=== PATIENT | female | born 1960 | race Caucasian/White ===

== ENCOUNTER 2017-03-22 20:32 | Emergency (ER) | payer MEDICARE, MEDICAID ==
[2017-03-22] MEDS ORDERED: Atropine/Diphenoxylate 0.025-2.5 MG Tab PO ONE (20:46)
--- NOTE | 2017-03-22 20:51 | EDM.PDOC ---
ED HPI GENERAL MEDICAL PROBLEM - General Chief Complaint: Gastrointestinal Problem Stated Complaint: CDIFF? [id number] Time Seen by Provider: 03/22/17 20:47 Source of Information: Reports: Patient History Limitations: Reports: No Limitations - History of Present Illness INITIAL COMMENTS - FREE TEXT/NARRATIVE: been having diarrhoea since taking augmentin few months ago. being Tx with Rx & probiotic but past few days gotten worse, unable to wait for clinic tomorrow. Lower Abdominal Pain Score (Numeric/FACES): 8 - Related Data Allergies Allergy/AdvReac Type Severity Reaction Status Date / Time No Known Allergies Allergy Verified 03/22/17 21:05 Home Meds: Home Meds Albuterol [Proventil HFA] 2 puff INH Q4HR PRN 12/03/13 [History] tiZANidine [Zanaflex] 4 mg PO BID 12/03/13 [History] Albuterol [Proventil Neb Soln] 1.25 mg NEB Q6HRRT PRN 10/13/14 [History] Aspirin [[place] Aspirin] 81 mg PO DAILY 10/13/14 [History] Fluticasone/Salmeterol [Advair 500-50 Diskus] 1 puff INH DAILY 10/13/14 [History ] Hydrochlorothiazide/Losartan [Hyzaar 50-12.5 MG] 1 tab PO DAILY 10/13/14 [ History] diphenhydrAMINE [Benadryl] 50 mg PO BID PRN 10/13/14 [History] Cholestyramine/Aspartame [Prevalite] 1 pkt PO ASDIRECTED 03/22/17 [History] ClonazePAM [KlonoPIN] 1 tab PO BID PRN 03/22/17 [History] Losartan/Hydrochlorothiazide [Losartan-HCTZ 50-12.5 MG] 1 tab PO DAILY 03/22/17 [History] Mirtazapine [Mirtazapine] 1 tab PO DAILY 03/22/17 [History] Topiramate [Topiramate] 1 tab PO DAILY 03/22/17 [History] Social & Family History - Tobacco Use Years of Tobacco use: 33 Second Hand Smoke Exposure: Yes - Alcohol Use Days Per Week of Alcohol Use: 0 - Recreational Drug Use Recreational Drug Use: No - Living Situation & Occupation Living situation: Reports: with Family Occupation: Unemployed ED ROS GENERAL - Review of Systems Review Of Systems: ROS reveals no pertinent complaints other than HPI. ED EXAM, GI/ABD - Physical Exam Exam: See Below Exam Limited By: No Limitations General Appearance: Alert, WD/WN, Mild Distress, Other (discomfort) Ears: Hearing Grossly Normal Throat/Mouth: Normal Voice, No Airway Compromise Head: Atraumatic Neck: Non-Tender, Full Range of Motion Respiratory/Chest: No Respiratory Distress Cardiovascular: Regular Rate, Rhythm GI/Abdominal Exam: Soft, Abnormal Bowel Sounds, Other (BS hyper). No: Distended , Guarding, Rigid, Rebound, Tender Neurological: Alert, Oriented, Normal Cognition, Normal Gait, No Motor/Sensory Deficits Psychiatric: Flat Affect, Other (upset) Skin Exam: Warm, Dry, Normal Color Lymphatic: No Adenopathy Course - Vital Signs Last Recorded V/S: Last Vital Signs Temp 36.8 C 03/22/17 20:40 Pulse 116 H 03/22/17 20:40 Resp 16 03/22/17 20:40 BP 123/68 03/22/17 20:40 Pulse Ox 96 03/22/17 20:40 - Orders/Labs/Meds Orders: Active Orders 24 hr Category Date Time Status C DIFFICILE TOXIN BY PCR [MREF] Stat Lab 03/22/17 21:37 Ordered CULTURE STOOL [RM] Stat Lab 03/22/17 21:19 Ordered CULTURE STOOL [RM] Stat Lab 03/22/17 21:37 Ordered E COLI STOOL CULT [MREF] Stat Lab 03/22/17 21:19 Ordered H PYLORI STOOL ANTIGEN [MREF] Stat Lab 03/22/17 21:19 Ordered Labs: Laboratory Tests 03/22/17 03/22/17 Range/Units 20:53 20:53 WBC 13.8 H (5.0-10.0) 10^3/uL RBC 4.45 (4.2-5.4) 10^6/uL Hgb 13.6 (12.0-16.0) g/dL Hct 39.7 (37.0-47.0) % MCV 89.2 D (80-100) fL MCH 30.6 (27.0-34.0) pg MCHC 34.3 (33.0-35.0) g/dL Plt Count 435 (150-450) 10^3/uL Neut % (Auto) 66.9 (42.2-75.2) % Lymph % (Auto) 18.8 L (20.5-50.1) % [place] % (Auto) 9.6 H (2-8) % Eos % (Auto) 4.3 H (1.0-3.0) % Baso % (Auto) 0.4 (0.0-1.0) % Sodium 137 (135-145) mmol/L Potassium 3.2 L (3.6-5.0) mmol/L Chloride 103 (101-111) mmol/L Carbon Dioxide 23.0 (21.0-31.0) mmol/L Anion Gap 14.2 BUN 9 (7-18) mg/dL Creatinine 0.9 (0.6-1.3) mg/dL Est Cr Clr Drug Dosing 62.80 mL/min Estimated GFR (MDRD) > 60 BUN/Creatinine Ratio 10.00 Glucose 137 H (74-105) mg/dL Calcium 9.0 (8.4-10.2) mg/dl Total Bilirubin 0.5 (0.2-1.0) mg/dL AST 25 (10-42) IU/L ALT 34 (10-60) IU/L Alkaline Phosphatase 58 (42-121) IU/L Total Protein 7.5 (6.7-8.2) g/dl Albumin 3.9 (3.2-5.5) g/dl Globulin 3.6 Albumin/Globulin Ratio 1.08 Meds: Medications Discontinued Medications Generic Name Dose Route Start Last Admin Trade Name Freq PRN Reason Stop Dose Admin Diphenoxylate HCl/Atropine 1 tab 03/22/17 20:46 03/22/17 21:19 Lomotil 0.025-2.5 Mg PO 03/22/17 20:47 1 tab ONETIME ONE Administration - Re-Assessments/Exams Free Text/Narrative Re-Assessment/Exam: 03/22/17 21:53 results discussed with pt who is feeling better s/p lomotil. probiotic issue was also discussed. Departure - Departure Time of Disposition: 21:54 Disposition: Home, Self-Care 01 Condition: Good Clinical Impression: Diarrhea, Abdominal pain - Discharge Information Instructions: Diarrhea, Adult, [id number] Forms: ED Department Discharge Additional Instructions: 1) try CHOBANI yoghurt. 2) continue present meds. 3) follow up with family doctor 4) recheck as needed rx given; bentyl 10mg bid prn cramps x 12 lomotil bid prn diarrhoea x 12 - My Orders Last 24 Hours: My Active Orders 03/22/17 21:19 CULTURE STOOL [RM] Stat E COLI STOOL CULT [MREF] Stat H PYLORI STOOL ANTIGEN [MREF] Stat 03/22/17 21:37 C DIFFICILE TOXIN BY PCR [MREF] Stat CULTURE STOOL [RM] Stat - Assessment/Plan Last 24 Hours: My Active Orders 03/22/17 21:19 CULTURE STOOL [RM] Stat E COLI STOOL CULT [MREF] Stat H PYLORI STOOL ANTIGEN [MREF] Stat 03/22/17 21:37 C DIFFICILE TOXIN BY PCR [MREF] Stat CULTURE STOOL [RM] Stat
[2017-03-22 21:18] LABS: ANION GAP 14.2; CHLORIDE,CL 103 mmol/L (101-111); SODIUM,NA 137 mmol/L (135-145)
[2017-03-22 21:54] VITALS: BP 140/69
[2017-03-22] MEDS ORDERED: metroNIDAZOLE 250 MG Tab PO ONE (21:56)
== END 2017-03-22 22:14 | disposition home or self-care (01) ==
LOC: DL.ED 20:32
DX: R19.7 Diarrhea, unspecified (principal); R10.30 Lower abdominal pain, unspecified; Z77.22 Contact with and (suspected) exposure to environmental tobacco smoke (acute) (chronic); Z79.899 Other long term (current) drug therapy; Z79.82 Long term (current) use of aspirin
CPT/HCPCS: 36415; 80053; 85025; 87045; 87046; 87493; 87899; 99283; A9270

== ENCOUNTER 2018-06-09 17:12 | Emergency (ER) | payer MEDICARE, MEDICAID ==
[2018-06-09 17:24] VITALS: BP 143/76
[2018-06-09 18:23] LABS: ANION GAP 15.9; CHLORIDE,CL 98 mmol/L (101-111); SODIUM,NA 137 mmol/L (135-145)
[2018-06-09] MEDS ORDERED: metroNIDAZOLE 250 MG Tab PO ONE (18:34)
[2018-06-09] MEDS ORDERED: Ciprofloxacin 500 MG Tab PO ONE (18:34)
[2018-06-09] MEDS ORDERED: Atropine/Diphenoxylate 0.025-2.5 MG Tab PO ONE (18:35)
--- NOTE | 2018-06-09 18:51 | EDM.PDOC ---
Scribed by Vickie Zafar 06/09/18 [id number] for Bereket Cutler MD ED HPI GENERAL MEDICAL PROBLEM - General Chief Complaint: Gastrointestinal Problem Stated Complaint: COLITUS Time Seen by Provider: 06/09/18 17:26 Source of Information: Reports: Patient, Old Records, RN, RN Notes Reviewed History Limitations: Reports: No Limitations - History of Present Illness INITIAL COMMENTS - FREE TEXT/NARRATIVE: Patient presents to ER with complaint of abdominal pain. She has a history of colitis which has flared up and gotten worse the last couple of days. She states it takes to long to get into the clinic. She rates her lower abdominal pain as a 4/10. She has taken nothing for the pain. She did have diarrhea today all day and took for this. Her colitis flares up after antibiotics and was on a ZPAK and prednisone for something behind her ear. She denies fever, chills, N/V , or melena. She has been evaluated by Dr. Strickland for chronic diarrhea and plans to have endoscopy in August. 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 Treatments (OTC Immodium AD (no relief)) Lower Abdomen Pain Score (Numeric/FACES): 4 - Related Data Allergies Allergy/AdvReac Type Severity Reaction Status Date / Time No Known Allergies Allergy Verified 06/09/18 17:24 Home Meds: Home Meds Albuterol [Proventil HFA] 2 puff INH Q4HR PRN 12/03/13 [History] tiZANidine [Zanaflex] 4 mg PO BID PRN 12/03/13 [History] Albuterol [Proventil Neb Soln] 1.25 mg NEB Q6HRRT PRN 10/13/14 [History] Aspirin [[place] Aspirin EC] 81 mg PO DAILY 10/13/14 [History] Fluticasone/Salmeterol [Advair 500-50 Diskus] 1 puff INH DAILY 10/13/14 [History ] diphenhydrAMINE [Benadryl] 50 mg PO BID PRN 10/13/14 [History] ClonazePAM [KlonoPIN] 1 tab PO BID PRN 03/22/17 [History] Losartan/Hydrochlorothiazide [Losartan-HCTZ 50-12.5 MG] 1 tab PO DAILY 03/22/17 [History] Mirtazapine 1 tab PO DAILY 03/22/17 [History] ARIPiprazole [Aripiprazole] 10 mg PO DAILY 06/09/18 [History] Eszopiclone 2 mg PO BEDTIME 06/09/18 [History] Gabapentin [Neurontin] 400 mg PO DAILY 06/09/18 [History] Gabapentin [Neurontin] 800 mg PO BID 06/09/18 [History] Propranolol [Inderal LA] 80 mg PO DAILY 06/09/18 [History] busPIRone [Buspar] 10 mg PO TID 06/09/18 [History] Past Medical History Cardiovascular 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: Hypertension Respiratory 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: Bronchitis, Recurrent Gastrointestinal 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: Chronic Diarrhea Psychiatric 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: Anxiety, Depression Endocrine/Metabolic 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: Hypothyroidism, Obesity/BMI 30+ Social & Family History - Family History Family Medical History: Noncontributory - Tobacco Use Smoking Status *Q: Former Smoker Tobacco Use Within Last Twelve Months: Cigarettes - Caffeine Use Caffeine Use: Reports: Coffee - Alcohol Use Alcohol Use History: No - Recreational Drug Use Recreational Drug Use: No - Living Situation & Occupation Living situation: Reports: with Family Occupation: Unemployed ED ROS GENERAL - Review of Systems Review Of Systems: ROS reveals no pertinent complaints other than HPI. ED EXAM, GI/ABD - Physical Exam Exam: See Below Exam Limited By: No Limitations General Appearance: Alert, WD/WN, No Apparent Distress, Obese Eyes: Bilateral: Normal Appearance (No scleral icterus) Nose: Normal Inspection, Normal Mucosa, No Blood Throat/Mouth: Normal Inspection, Normal Lips, Normal Oropharynx, Normal Voice, No Airway Compromise Head: Atraumatic, Normocephalic Neck: Normal Inspection, Supple Respiratory/Chest: No Respiratory Distress, Lungs Clear, No Accessory Muscle Use , Chest Non-Tender, Decreased Breath Sounds Cardiovascular: Regular Rate, Rhythm, No Edema, No Murmur GI/Abdominal Exam: Normal Bowel Sounds, Soft, No Distention, Tender (Mild tenderness to palpation at LUQ and LLQ), Other (no peritoneal signs). No: Guarding, Rigid, Rebound (Female) Exam: Deferred Rectal (Female) Exam: Deferred Back Exam: Normal Inspection, Full Range of Motion. No: CVA Tenderness (L), CVA Tenderness (R) Extremities: Normal Inspection, Normal Range of Motion, Non-Tender, No Pedal Edema Neurological: Alert, Oriented, Normal Cognition, Normal Gait, No Motor/Sensory Deficits Psychiatric: Normal Affect, Normal Mood Skin Exam: Warm, Dry, Intact, Normal Color, No Rash. No: Jaundice Course - Vital Signs Last Recorded V/S: Last Vital Signs Temp 36.2 C 06/09/18 17: Pulse 75 06/09/18 17: Resp 16 06/09/18 17: BP 143/76 H 06/09/18 17: Pulse Ox 98 06/09/18 17:19 - Orders/Labs/Meds Labs: Laboratory Tests 06/09/18 06/09/18 06/09/18 Range/Units 18:00 18:00 18:00 WBC 12.8 H (5.0-10.0) 10^3/uL RBC 4.12 L (4.2-5.4) 10^6/uL Hgb 12.7 (12.0-16.0) g/dL Hct 37.9 (37.0-47.0) % MCV 92.0 (80-100) fL MCH 30.8 (27.0-34.0) pg MCHC 33.5 (33.0-35.0) g/dL Plt Count 466 H (150-450) 10^3/uL Neut % (Auto) 72.9 (42.2-75.2) % Lymph % (Auto) 19.0 L (20.5-50.1) % [place] % (Auto) 5.5 (2-8) % Eos % (Auto) 2.2 (1.0-3.0) % Baso % (Auto) 0.4 (0.0-1.0) % Sodium 137 (135-145) mmol/L Potassium 3.9 (3.6-5.0) mmol/L Chloride 98 L (101-111) mmol/L Carbon Dioxide 27.0 (21.0-31.0) mmol/L Anion Gap 15.9 BUN 16 (7-18) mg/dL Creatinine 0.9 (0.6-1.3) mg/dL Est Cr Clr Drug Dosing 67.07 mL/min Estimated GFR (MDRD) > 60 BUN/Creatinine Ratio 17.77 Glucose 111 H (74-105) mg/dL Calcium 9.7 (8.4-10.2) mg/dl Total Bilirubin 0.6 (0.2-1.0) mg/dL AST 17 (10-42) IU/L ALT 15 (10-60) IU/L Alkaline Phosphatase 60 (42-121) IU/L C-Reactive Protein 0.8 (0.0-1.3) mg/dL Total Protein 7.8 (6.7-8.2) g/dl Albumin 4.1 (3.2-5.5) g/dl Globulin 3.7 Albumin/Globulin Ratio 1.11 Amylase 45 (28-100) U/L Lipase 41 (22-51) U/L Meds: Medications Discontinued Medications Generic Name Dose Route Start Last Admin Trade Name Freq PRN Reason Stop Dose Admin Ciprofloxacin 500 mg 06/09/18 18:34 Ciprofloxacin Hcl PO 06/09/18 18:35 ONETIME ONE Diphenoxylate HCl/Atropine 2 tab 06/09/18 18:35 Lomotil 0.025-2.5 Mg PO 06/09/18 18:36 ONETIME ONE Metronidazole 500 mg 06/09/18 18:34 Metronidazole PO 06/09/18 18:35 ONETIME ONE Departure - Departure Time of Disposition: 18:37 Disposition: Home, Self-Care 01 Condition: Good Clinical Impression: Colitis - Discharge Information *PRESCRIPTION DRUG MONITORING PROGRAM REVIEWED*: Not Applicable *COPY OF PRESCRIPTION DRUG MONITORING REPORT IN PATIENT HARDIK: Not Applicable Instructions: Chronic Diarrhea, Colitis Forms: ED Department Discharge Additional Instructions: Rx: Cipro 500mg Rx: Flagyl 500mg Rx: Lomotil Drink plenty of water. Follow up in clinic with Dr. Strickland at the first available appointment. I have read and agree with the documentation that has been completed regarding this visit. By signing this record, I attest that the documentation was completed in my physical presence and is an accurate record of the encounter.
== END 2018-06-09 19:02 | disposition home or self-care (01) ==
LOC: DL.ED 17:12
DX: K52.9 Noninfective gastroenteritis and colitis, unspecified (principal); I10 Essential (primary) hypertension; Z79.899 Other long term (current) drug therapy; Z87.891 Personal history of nicotine dependence
CPT/HCPCS: 36415; 80053; 82150; 83690; 85025; 86140; 99283; A9270-GY

== ENCOUNTER 2018-08-20 06:35 | Day surgery (SDC) | payer MEDICARE, MEDICAID ==
[~2018-08-20 06:35] MED LIST: Midazolam 1 MG/ML 2 ML SDV ONE; fentaNYL 100 MCG/2 ML SDV ONE
[2018-08-20] MEDS ORDERED: Midazolam 1 MG/ML 2 ML SDV IV ONE ×7 (06:36→07:35)
[2018-08-20] MEDS ORDERED: fentaNYL 100 MCG/2 ML SDV IV ONE ×6 (06:36→07:45)
[2018-08-20] MEDS ORDERED: Sodium Chloride 0.9% 10 ML Syringe FLUSH PRN (06:53)
[2018-08-20] MEDS ORDERED: Dextrose 5%-0.45% NaCl 1,000 ML IV SCH (07:00)
[2018-08-20 12:11] VITALS: BP 116/56; PULSE 100
--- NOTE | 2018-08-20 13:37 | OR ---
DATE: 08/20/2018 PROCEDURE PERFORMED: Total colonoscopy, narrow band imaging, and multiple pinch biopsies. INSTRUMENT USED: PCF-H190DL Olympus video colonoscope. PREMEDICATIONS: Fentanyl 175 mcg intravenous, Versed 4 mg intravenous. Nasal O2 cannula. The procedure was done under pulse oximetry, BP recording, and cardiac monitoring. INDICATIONS: The patient with recurrent diarrhea, unexplained, and not responsive to medical measures. Colonoscopic examination is done for detection of any polypoid lesions and removal, endoscopic hemostasis therapy if needed. DESCRIPTION OF PROCEDURE: Initial rectal exam was unremarkable. Rigid anoscopy showed inflamed rectal mucosa with contact bleeding as well as superficial ulcerations and pseudomembrane formation. The colonoscope was passed with ease. Photographs were taken of the rectosigmoid area, showing superficial ulcers as well as pseudomembranes with contact bleeding at the mucosa. NBI views were obtained. Photographs were taken. Numerous pinch biopsies were taken and sent for histopathology. Scattered diverticula were noted in the distal left colon. The scope was passed with ease up to the ileocecal area. Photographs were taken of the normal-appearing cecum. Photographs were also taken of the normal- appearing transverse colon and descending colon. No bleeding was noted from any of the visualized areas at the commencement of the examination. There was quite a bit of fecal material that had to be aspirated. Bowel preparation [place] scale 2. No stricture, no vascular ectasia, no large isolated ulcerations noted. No polyp or tumor mass identified. Multiple pinch biopsies were taken from the normal-appearing mucosa of the mid transverse colon and mid descending colon and sent for histopathology. Probing the proximal sides of folds and flexures using adequate distention and clearing up the stool material, withdrawal of the scope was made. No bleeding was noted from any of the visualized areas at the completion of examination. IMPRESSION: 1. Diverticulosis. 2. Pseudomembranous colitis. The patient tolerated the procedure well. [facility] /[id number]
[2018-08-23] MEDS ORDERED: Dextrose 5%-0.45% NaCl 1,000 ML IV SCH (06:00)
[2018-08-23] MEDS ORDERED: Sodium Chloride 0.9% 10 ML Syringe FLUSH PRN (06:00)
== END 2018-08-20 09:38 | disposition home or self-care (01) ==
LOC: DL.ENDO 06:35
PROVIDERS: ATTEND Internal Medicine Gastroenterology
DX: K63.5 Polyp of colon (principal); K57.31 Diverticulosis of large intestine without perforation or abscess with bleeding; T50.905A Adverse effect of unspecified drugs, medicaments and biological substances, initial encounter; A04.72 Enterocolitis due to Clostridium difficile, not specified as recurrent; K62.89 Other specified diseases of anus and rectum; I10 Essential (primary) hypertension; I25.2 Old myocardial infarction; J45.909 Unspecified asthma, uncomplicated; K21.9 Gastro-esophageal reflux disease without esophagitis; E66.09 Other obesity due to excess calories; F31.9 Bipolar disorder, unspecified; Z68.42 Body mass index [BMI] 45.0-49.9, adult; Z90.710 Acquired absence of both cervix and uterus; Z79.2 Long term (current) use of antibiotics; Z79.82 Long term (current) use of aspirin; Z77.120 Contact with and (suspected) exposure to mold (toxic); Z87.39 Personal history of other diseases of the musculoskeletal system and connective tissue; Z86.79 Personal history of other diseases of the circulatory system; Z86.39 Personal history of other endocrine, nutritional and metabolic disease
CPT/HCPCS: 45380; J2250; J3010; J7042; 88305

== ENCOUNTER 2019-08-28 06:18 | Day surgery (SDC) | payer MEDICARE, MEDICAID ==
[~2019-08-28 06:18] MED LIST changes: +Dextrose 5%-0.45% NaCl 1,000 ML IV SCH; -Midazolam 1 MG/ML 2 ML SDV ONE; +Sodium Chloride 0.9% 10 ML Syringe FLUSH PRN; -fentaNYL 100 MCG/2 ML SDV ONE
[2019-08-28] MEDS ORDERED: fentaNYL 100 MCG/2 ML SDV IV ONE ×5 (06:19→07:45)
[2019-08-28] MEDS ORDERED: Midazolam 1 MG/ML 2 ML SDV IV ONE ×7 (06:19→07:38)
[2019-08-28] MEDS ORDERED: Midazolam 1 MG/ML 2 ML SDV ONE (06:58)
[2019-08-28] MEDS ORDERED: fentaNYL 100 MCG/2 ML SDV ONE (06:58)
[2019-08-28 10:03] VITALS: BP 99/58; PULSE 92
--- NOTE | 2019-08-28 10:27 | OR ---
DATE: 08/28/2019 PROCEDURE: Total colonoscopy and multiple pinch biopsies. INSTRUMENT USED: PCF-H190DL Olympus video colonoscope. PREMEDICATIONS: Fentanyl 150 mcg intravenous, Versed 4 mg intravenous, nasal O2 cannula. The procedure was done under pulse oximetry, BP recording, and monitoring engineer. INDICATION: The patient with known ulcerative colitis, on therapy. Colonoscopic examination is done for detection of mucosal bleeding and biopsies for any evidence of microscopic colitis, polypectomies as indicated, endoscopic hemostasis therapy if needed. DESCRIPTION OF PROCEDURE: Initial rectal exam was unremarkable. Rigid anoscopy showed small internal hemorrhoids without bleeding from them. The colonoscope was passed with ease. Numerous scattered diverticula were noted in the distal left colon along with deformity. Photographs were taken of the normal-appearing mucosa of the rectum, sigmoid colon, descending colon, as well as cecum. PROCEDURE IN DETAIL: The scope was passed with ease up to the ileocecal area. Photographs were taken of the normal-appearing cecum, identified by landmarks of appendiceal orifice and double-bulged ileocecal folds. No bleeding was noted from any of the visualized areas at the commencement of the examination. The bowel preparation was found to be adequate, [place] scale 2 in all the areas. Total score 6. No stricture. No vascular ectasia. No large isolated ulcerations seen. No evidence of diffuse inflammatory bowel disease in the form of friability, contact bleeding, or ulcerations. No polyp or tumor mass identified. Probing the proximal sides of folds and flexures using adequate distention and clearing up the stool material, withdrawal of the scope was made. Multiple pinch biopsies were taken from the normal-appearing mucosa of the mid transverse colon, descending colon, and rectosigmoid, and sent for any histopathologic evidence of microscopic colitis. No bleeding was noted from any of the visualized areas at the completion of examination. IMPRESSION: 1. Internal hemorrhoids. 2. Diverticulosis. The patient tolerated the procedure well. [facility] /[id number]
== END 2019-08-28 09:55 | disposition home or self-care (01) ==
LOC: DL.ENDO 06:18
PROVIDERS: ATTEND Internal Medicine Gastroenterology
DX: K51.90 Ulcerative colitis, unspecified, without complications (principal); K64.8 Other hemorrhoids; K57.30 Diverticulosis of large intestine without perforation or abscess without bleeding; E66.09 Other obesity due to excess calories; I10 Essential (primary) hypertension; E03.9 Hypothyroidism, unspecified; F41.1 Generalized anxiety disorder; Z68.42 Body mass index [BMI] 45.0-49.9, adult
CPT/HCPCS: 45380; J2250; J3010; J7042

== ENCOUNTER 2019-09-11 19:38 | Emergency (ER) | payer MEDICARE, MEDICAID ==
[2019-09-11] MEDS ORDERED: Famotidine 20 MG Tab PO ONE (20:04)
[2019-09-11] MEDS ORDERED: EPINEPHrine 1 MG/ML SDV SUBCUT ONE (20:04)
[2019-09-11] MEDS ORDERED: predniSONE 20 MG Tab PO ONE (20:07)
[2019-09-11 20:39] VITALS: BP 109/68; PULSE 85
--- NOTE | 2019-09-11 21:03 | EDM.PDOC ---
ED HPI GENERAL MEDICAL PROBLEM - General Chief Complaint: Skin Complaint Stated Complaint: RASH Time Seen by Provider: 09/11/19 19:45 Source of Information: Reports: Patient, RN Notes Reviewed History Limitations: Reports: No Limitations - History of Present Illness INITIAL COMMENTS - FREE TEXT/NARRATIVE: ED with c/o hives started on arms now all over. Thinks possibly from new medication. Was seen in clinic today and given kenalog and prednisone. Last hydroxyzine 50mg at 430. Denies difficulty breathing or swallowing. - Related Data Allergies Allergy/AdvReac Type Severity Reaction Status Date / Time cat dander Allergy Mild Cough Verified 09/11/19 19:43 mold Allergy Mild Cough Verified 09/11/19 19:43 amoxicillin [From Augmentin] AdvReac Mild Diarrhea Verified 09/11/19 19:43 clavulanic acid AdvReac Mild Diarrhea Verified 09/11/19 19:43 [From Augmentin] seasonal Allergy Mild Cough Uncoded 09/11/19 19:43 nuts Allergy Rash Uncoded 09/11/19 19:43 Home Meds: Home Meds Albuterol [Proventil HFA] 2 puff INH Q4HR PRN 12/03/13 [History] tiZANidine [Zanaflex] 4 mg PO BID PRN 12/03/13 [History] Albuterol [Proventil Neb Soln] 1.25 mg NEB Q6HRRT PRN 10/13/14 [History] Aspirin [[place] Aspirin EC] 81 mg PO DAILY 10/13/14 [History] diphenhydrAMINE [Benadryl] 50 mg PO BID PRN 10/13/14 [History] ClonazePAM [KlonoPIN] 1 mg PO DAILY PRN 03/22/17 [History] Losartan/Hydrochlorothiazide [Losartan-HCTZ 50-12.5 MG] 1 tab PO DAILY 03/22/17 [History] Mirtazapine 45 mg PO DAILY 03/22/17 [History] Propranolol [Inderal LA] 40 mg PO DAILY 06/09/18 [History] busPIRone [Buspar] 15 mg PO TID 06/09/18 [History] Brexpiprazole [Rexulti] 1 mg PO DAILY 08/19/18 [History] Diphenoxylate HCl/Atropine [Lomotil] 1 each PO TID MDD diarrhea 08/19/18 [ History] Levothyroxine 125 mcg PO ACBREAKFAST 08/19/18 [History] hydrOXYzine HCL [Atarax] 50 mg PO BEDTIME PRN 08/19/18 [History] lamoTRIgine [Lamictal] 200 mg PO DAILY 08/19/18 [History] Adalimumab [Humira Pen] 0.8 ml INJECT Q14D 08/27/19 [History] Fluticasone/Salmeterol [Advair 100-50] DAILY 08/27/19 [History] Past Medical History HEENT 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: Impaired Vision, Sinusitis Other HEENT History: contacts Cardiovascular 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: CAD, High Cholesterol, Hypertension, [place], Other (See Below) Other Cardiovascular History: NON ST SEGMENT ELEVATION Respiratory 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: Asthma Gastrointestinal 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: Chronic Diarrhea, GERD, Other (See Below) Other Gastrointestinal History: ULCERATIVE COLITIS Genitourinary 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: None 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 SPECIALIST 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: Musculoskeletal 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: Arthritis, Other (See Below) Other Musculoskeletal History: CHRONIC RIGHT KNEE PAIN Neurological 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: Head Trauma Psychiatric 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: Anxiety, Depression Endocrine/Metabolic 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: Hypothyroidism, Obesity/BMI 30+, Other ( See Below) Other Endocrine/Metabolic History: IMPAIRED FASTING GLUCOSE Hematologic 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: None Immunologic 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: None Oncologic (Cancer) 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: None Dermatologic 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: Psoriasis, Other (See Below) Other Dermatologic History: problems behind her ear - Infectious Disease History Infectious Disease 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: Chicken Pox - Past Surgical History Head Surgeries/Procedures: Reports: None HEENT Surgical 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: None Cardiovascular Surgical 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: None Respiratory Surgical 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: None GI Surgical 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: None Female Surgical 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: Hysterectomy Endocrine Surgical 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: None Neurological Surgical 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: None Musculoskeletal Surgical 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: None Oncologic Surgical 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: None Dermatological Surgical 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: None Social & Family History - Family History Family Medical History: Noncontributory Other Cardiac Family History: Father had issues with heart valve Other GI Family History: Both parents had digestion issues. Father had Crohns disease and mother had gallbladder removed Psychiatric: Reports: Depression Other Psychiatric Family History: History of depression in family - Tobacco Use Smoking Status *Q: Never Smoker Second Hand Smoke Exposure: No - Caffeine Use Caffeine Use: Reports: Coffee Other Caffeine Use: 2 cups daily - Living Situation & Occupation Living situation: Reports: with Family Occupation: Unemployed ED ROS GENERAL - Review of Systems Review Of Systems: Comprehensive ROS is negative, except as noted in HPI. ED EXAM, SKIN/RASH Exam: See Below Exam Limited By: No Limitations General Appearance: Alert, No Apparent Distress, Obese Eye Exam: Bilateral Eye: EOMI, PERRL Ears: Normal External Exam, Hearing Grossly Normal Nose: Normal Inspection Throat/Mouth: Normal Inspection Head: Atraumatic, Normocephalic Neck: Normal Inspection, Full Range of Motion Respiratory/Chest: No Respiratory Distress, Lungs Clear, Normal Breath Sounds Cardiovascular: Normal Peripheral Pulses, Regular Rate, Rhythm GI/Abdominal: Normal Bowel Sounds, Soft Extremities: Normal Inspection, Normal Range of Motion, Leg Pain Skin: Warm, Dry, Intact, Normal Color, Rash (non raised puritic lacy macular more concentrated inner forearms upper back and chest.) Course - Vital Signs Last Recorded V/S: Last Vital Signs Temp 98 F 09/11/19 19:39 Pulse 85 09/11/19 20:38 Resp 20 09/11/19 20:38 BP 109/68 09/11/19 20:38 Pulse Ox 98 09/11/19 20:38 - Orders/Labs/Meds Meds: Medications Discontinued Medications Generic Name Dose Route Start Last Admin Trade Name Ricky PRN Reason Stop Dose Admin Epinephrine HCl 0.3 mg 09/11/19 20:04 09/11/19 20:20 Adrenalin SUBCUT 09/11/19 20:05 0.3 mg ONETIME ONE Administration Famotidine 20 mg 09/11/19 20:04 09/11/19 20:16 Pepcid PO 09/11/19 20:05 20 mg ONETIME ONE Administration Prednisone 20 mg 09/11/19 20:07 09/11/19 20:16 Prednisone PO 09/11/19 20:08 20 mg ONETIME ONE Administration Departure - Departure Time of Disposition: 20:59 Disposition: Home, Self-Care 01 Condition: Good Clinical Impression: Hives - Discharge Information *PRESCRIPTION DRUG MONITORING PROGRAM REVIEWED*: No *COPY OF PRESCRIPTION DRUG MONITORING REPORT IN PATIENT HARDIK: No Instructions: Hives Forms: ED Department Discharge Additional Instructions: benadryl 50mg or hydroyzine 50mg every 4 hours for itching Famotidine/pepcid 20mg twice daily for one week Prednisone as ordered by PCP Follow up if symptoms worsen, or difficulty breathing or swallowing Sepsis Event Note - Evaluation Sepsis Screening Result: No Definite Risk - Focused Exam Vital Signs: Vital Signs Temp Pulse Resp BP Pulse Ox 09/11/19 20:38 85 20 109/68 98 09/11/19 20:26 120 H 20 118/59 L 97 09/11/19 19:39 98 F 92 20 133/82 97 Date Exam was Performed: 09/11/19 Time Exam was Performed: 21:51
== END 2019-09-11 21:02 | disposition home or self-care (01) ==
LOC: DL.ED 19:38
DX: L50.9 Urticaria, unspecified (principal); F41.9 Anxiety disorder, unspecified; F32.9 Major depressive disorder, single episode, unspecified; E03.9 Hypothyroidism, unspecified; E66.9 Obesity, unspecified; I10 Essential (primary) hypertension; I25.2 Old myocardial infarction; J45.909 Unspecified asthma, uncomplicated; M19.90 Unspecified osteoarthritis, unspecified site; I25.10 Atherosclerotic heart disease of native coronary artery without angina pectoris; Z68.42 Body mass index [BMI] 45.0-49.9, adult; Z91.09 Other allergy status, other than to drugs and biological substances; Z88.1 Allergy status to other antibiotic agents; Z91.018 Allergy to other foods; Z79.82 Long term (current) use of aspirin
CPT/HCPCS: 96372; 99282; A9270; J0171; J7512; 99283

== ENCOUNTER 2020-05-21 21:00 | Emergency (ER) | payer MEDICARE, MEDICAID ==
[2020-05-21] MEDS ORDERED: Acetaminophen/HYDROcodone 325-10 MG Tab PO ONE (21:01)
[2020-05-21 21:14] VITALS: BP 116/74; PULSE 71
--- NOTE | 2020-05-21 21:17 | EDM.PDOC ---
ED HPI GENERAL MEDICAL PROBLEM - General Chief Complaint: General Stated Complaint: FALL ON LEFT SIDE, RIBS HURT Time Seen by Provider: 05/21/20 21:15 Source of Information: Reports: Patient History Limitations: Reports: No Limitations - History of Present Illness INITIAL COMMENTS - FREE TEXT/NARRATIVE: fell onto ice 2 days ago still hurts and not getting better. denies head/neck injury or pain. 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: Reports: Acetaminophen, NSAIDS, Other Medication(s) Left Lower Thoracic Pain Score (Numeric/FACES): 10 - Related Data Allergies Allergy/AdvReac Type Severity Reaction Status Date / Time cat dander Allergy Mild Cough Verified 05/21/20 21:04 mold Allergy Mild Cough Verified 05/21/20 21:04 amoxicillin [From Augmentin] AdvReac Mild Diarrhea Verified 05/21/20 21:04 clavulanic acid AdvReac Mild Diarrhea Verified 05/21/20 21:04 [From Augmentin] seasonal Allergy Mild Cough Uncoded 05/21/20 21:04 nuts Allergy Rash Uncoded 05/21/20 21:04 Home Meds: Home Meds Albuterol [Proventil HFA] 2 puff INH Q4HR PRN 12/03/13 [History] tiZANidine [Zanaflex] 4 mg PO BID PRN 12/03/13 [History] Albuterol [Proventil Neb Soln] 1.25 mg NEB Q6HRRT PRN 10/13/14 [History] Aspirin [[place] Aspirin EC] 81 mg PO DAILY 10/13/14 [History] diphenhydrAMINE [Benadryl] 50 mg PO BID PRN 10/13/14 [History] ClonazePAM [KlonoPIN] 1 mg PO DAILY PRN 03/22/17 [History] Losartan/Hydrochlorothiazide [Losartan-HCTZ 50-12.5 MG] 1 tab PO DAILY 03/22/17 [History] Mirtazapine 45 mg PO DAILY 03/22/17 [History] Propranolol [Inderal LA] 40 mg PO DAILY 06/09/18 [History] busPIRone [Buspar] 15 mg PO TID 06/09/18 [History] Brexpiprazole [Rexulti] 1 mg PO DAILY 08/19/18 [History] Diphenoxylate HCl/Atropine [Lomotil] 1 each PO TID MDD diarrhea 08/19/18 [History] Levothyroxine 125 mcg PO ACBREAKFAST 08/19/18 [History] hydrOXYzine HCL [Atarax] 50 mg PO BEDTIME PRN 08/19/18 [History] lamoTRIgine [Lamictal] 200 mg PO DAILY 08/19/18 [History] Adalimumab [Humira Pen] 0.8 ml INJECT Q14D 08/27/19 [History] Fluticasone/Salmeterol [Advair 100-50] DAILY 08/27/19 [History] Past Medical History HEENT 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: Impaired Vision, Sinusitis Other HEENT History: contacts Cardiovascular 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: CAD, High Cholesterol, Hypertension, GA, Other (See Below) Other Cardiovascular History: NON ST SEGMENT ELEVATION Respiratory 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: Asthma Gastrointestinal 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: Chronic Diarrhea, GERD, Other (See Below) Other Gastrointestinal History: ULCERATIVE COLITIS Genitourinary 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: None 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: Musculoskeletal 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: Arthritis, Other (See Below) Other Musculoskeletal History: CHRONIC RIGHT KNEE PAIN Neurological 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: Head Trauma Psychiatric 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: Anxiety, Depression Endocrine/Metabolic 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: Hypothyroidism, Obesity/BMI 30+, Other (See Below) Other Endocrine/Metabolic History: IMPAIRED FASTING GLUCOSE Hematologic 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: None Immunologic 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: None Oncologic (Cancer) 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: None Dermatologic 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: Psoriasis, Other (See Below) Other Dermatologic History: problems behind her ear - Infectious Disease History Infectious Disease 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: Chicken Pox - Past Surgical History Head Surgeries/Procedures: Reports: None HEENT Surgical 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: None Cardiovascular Surgical 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: None Respiratory Surgical 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: None GI Surgical 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: None Female Surgical 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: Hysterectomy Endocrine Surgical 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: None Neurological Surgical 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: None Musculoskeletal Surgical 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: None Oncologic Surgical 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: None Dermatological Surgical 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: None Social & Family History - Family History Family Medical History: No Pertinent Family History Other Cardiac Family History: Father had issues with heart valve Other GI Family History: Both parents had digestion issues. Father had Crohns disease and mother had gallbladder removed Psychiatric: Reports: Depression Other Psychiatric Family History: History of depression in family - Caffeine Use Caffeine Use: Reports: Coffee Other Caffeine Use: 2 cups daily - Living Situation & Occupation Living situation: Reports: with Family Occupation: Unemployed ED ROS GENERAL - Review of Systems Review Of Systems: Comprehensive ROS is negative, except as noted in HPI. ED EXAM, GENERAL - Physical Exam Exam: See Below Exam Limited By: No Limitations General Appearance: Alert, WD/WN, Mild Distress, Moderate Distress, Other (discomfort) Ears: Hearing Grossly Normal Throat/Mouth: Normal Voice, No Airway Compromise Head: Atraumatic Neck: Non-Tender, Full Range of Motion Respiratory/Chest: No Respiratory Distress, Other (tender left tramaine-lateral region) Cardiovascular: Regular Rate, Rhythm GI/Abdominal: Soft, Non-Tender (Female) Exam: Deferred Rectal (Female) Exam: Deferred Extremities: Normal Range of Motion Neurological: Alert, Oriented, Normal Cognition, Normal Gait, No Motor/Sensory Deficits Psychiatric: Flat Affect, Tearful Skin Exam: Warm, Dry, Normal Color Lymphatic: No Adenopathy Course - Vital Signs Last Recorded V/S: Last Vital Signs Temp 35.9 C L 05/21/20 21:10 Pulse 71 05/21/20 21:10 Resp 16 05/21/20 21:10 BP 116/74 05/21/20 21:10 Pulse Ox 98 05/21/20 21:10 - Orders/Labs/Meds Meds: Medications Discontinued Medications Generic Name Dose Route Start Last Admin Trade Name Ricky PRN Reason Stop Dose Admin Hydrocodone Bitart/Acetaminophen Confirm 05/21/20 21:59 [place] 325-10 Mg Administered 05/21/20 22:00 Dose 1 tab .ROUTE .STK-MED ONE - Re-Assessments/Exams Free Text/Narrative Re-Assessment/Exam: 05/21/20 22:11 results discussed with pt. Departure - Departure Time of Disposition: 22:11 Disposition: Home, Self-Care 01 Condition: Good Clinical Impression: Left rib fracture Qualifiers: Encounter type: initial encounter Rib fracture type: multiple ribs Fracture type: closed Qualified Code(s): S22.42XA - Multiple fractures of ribs, left side, initial encounter for closed fracture - Discharge Information Instructions: Rib Fracture, [id number] Forms: ED Department Discharge Additional Instructions: 1) take deep breath few times throughout the day 2) follow up at clinic rx given; vicodin 5/325mg bid to tid prn x 12 Sepsis Event Note (ED) - Evaluation Sepsis Screening Result: No Definite Risk - Focused Exam Vital Signs: Vital Signs Temp Pulse Resp BP Pulse Ox 05/21/20 21:10 35.9 C L 71 16 116/74 98
[2020-05-21] MEDS ORDERED: Acetaminophen/HYDROcodone 325-10 MG Tab ONE (21:59)
--- NOTE | 2020-05-21 22:02 | CR ---
PROCEDURE INFORMATION: Exam: XR Left Ribs with PA Chest, 3 Views Exam date and time: 05/21/2020 9:14 PM Age: 60 years old Clinical indication: Injury or trauma; Fall; Rib area, left side; Sprain or strain; Injury date: 05/21/2020; Injury details: Fell on ice, pain left lower ribs; Additional info: Fell onto ice TECHNIQUE: Imaging protocol: XR Left ribs 3 views with PA chest. COMPARISON: CR Chest 2V 03/04/2018 9:05 PM FINDINGS: Lungs: Unremarkable. No consolidation. Pleural space: Unremarkable. No pleural effusion. No pneumothorax. Heart/Mediastinum: Unremarkable. No cardiomegaly. Bones/joints: There are cortical irregularity seen on the anterior aspects of the 7th and 8th ribs on the left compatible with nondisplaced fractures. IMPRESSION: Cortical irregularities are seen on the anterior aspects of the 7th and 8th ribs on the left compatible with nondisplaced fractures.
== END 2020-05-21 22:17 | disposition home or self-care (01) ==
LOC: DL.ED 21:00
DX: S22.42XA Multiple fractures of ribs, left side, initial encounter for closed fracture (principal); I25.10 Atherosclerotic heart disease of native coronary artery without angina pectoris; I10 Essential (primary) hypertension; I25.2 Old myocardial infarction; J45.909 Unspecified asthma, uncomplicated; M19.90 Unspecified osteoarthritis, unspecified site; E03.9 Hypothyroidism, unspecified; E66.9 Obesity, unspecified; Z68.43 Body mass index [BMI] 50.0-59.9, adult; Z91.048 Other nonmedicinal substance allergy status; Z88.0 Allergy status to penicillin; Z88.1 Allergy status to other antibiotic agents; Z91.018 Allergy to other foods; Z79.82 Long term (current) use of aspirin; W00.0XXA Fall on same level due to ice and snow, initial encounter
CPT/HCPCS: 71101; 99283; A9270

== ENCOUNTER 2022-07-10 13:18 | Emergency (ER) | payer MEDICARE, MEDICAID ==
[2022-07-10 14:40] VITALS: BP 119/83; PULSE 90
== END 2022-07-10 15:55 | disposition left against medical advice (07) ==
LOC: DL.ED 13:18
DX: Z53.21 Procedure and treatment not carried out due to patient leaving prior to being seen by health care provider (principal)

== ENCOUNTER 2022-07-14 09:22 | Emergency (ER) | payer MEDICARE, MEDICAID ==
[2022-07-14 10:37] VITALS: BP 145/75; PULSE 107
[2022-07-14] MEDS ORDERED: HYDROmorphone 0.5 MG/0.5 ML Syringe IVPUSH ONE (10:42)
[2022-07-14] MEDS ORDERED: cefTRIAXone 2 GM Vial IVPUSH ONE (11:36)
[2022-07-14] MEDS ORDERED: Azithromycin 250 MG Tab PO ONE (11:37)
[2022-07-14 11:39] LABS: ANION GAP 12.4 mEq/L (7-13); CHLORIDE,CL 101 mmol/L (98-107); SODIUM,NA 137 mmol/L (136-145)
[2022-07-14 11:40] LABS: ESTIMATED GFR 66 mL/min (>=60)
== END 2022-07-14 12:29 | disposition home or self-care (01) ==
LOC: DL.ED 09:22
DX: J22 Unspecified acute lower respiratory infection (principal); I25.10 Atherosclerotic heart disease of native coronary artery without angina pectoris; I10 Essential (primary) hypertension; I25.2 Old myocardial infarction; M19.90 Unspecified osteoarthritis, unspecified site; E03.9 Hypothyroidism, unspecified; E66.9 Obesity, unspecified; Z72.0 Tobacco use; Z91.048 Other nonmedicinal substance allergy status; Z88.8 Allergy status to other drugs, medicaments and biological substances; Z88.0 Allergy status to penicillin; Z88.1 Allergy status to other antibiotic agents; Z91.018 Allergy to other foods; Z79.899 Other long term (current) drug therapy
CPT/HCPCS: 36415; 71046; 80053; 83605; 85025; 87040; 87077; 87186; 96374; 96375; 99284; 99285-25; A9270-GY; J0696; J1170

== ENCOUNTER 2022-07-20 06:11 | Inpatient (IN) | payer MEDICARE, MEDICAID ==
[2022-07-20] MEDS ORDERED: Albuterol/Ipratropium 3.0-0.5 MG/3 ML Neb Soln NEB ONE (06:37)
[2022-07-20] MEDS: Sodium Chloride 0.9% 10 ML Syringe FLUSH PRN (06:49)
[2022-07-20] MEDS ORDERED: Sodium Chloride 0.9% 1,000 ML IV ONE (06:53)
[2022-07-20 07:04] LABS: ANION GAP 15.2 mEq/L (7-13); CHLORIDE,CL 99 mmol/L (98-107); SODIUM,NA 137 mmol/L (136-145)
[2022-07-20 07:06] LABS: ESTIMATED GFR 61 mL/min (>=60)
[2022-07-20] MEDS ORDERED: Iopamidol 755 Mg/ML 100 ML Bottle IVPUSH ONE ×2 (08:29)
[2022-07-20] MEDS ORDERED: Enoxaparin 100 MG/1 ML Syringe SUBCUT ONE (09:16)
[2022-07-20] MEDS ORDERED: Acetaminophen 325 MG Tab PO PRN (11:12)
[2022-07-20] MEDS ORDERED: Ondansetron 4 MG/2 ML SDV IVPUSH PRN (11:12)
[2022-07-20] MEDS ORDERED: Bisacodyl 5 MG Tab PO PRN (11:12)
[2022-07-20] MEDS ORDERED: Polyethylene Glycol 3350 Powder 17 GM Packet PO PRN (11:12)
[2022-07-20] MEDS ORDERED: Magnesium Hydroxide 400 MG/5 ML Susp 30 ML Cup PO PRN (11:12)
[2022-07-20] MEDS ORDERED: Enoxaparin 40 MG/0.4 ML Syringe SUBCUT ONE (11:21)
[2022-07-20] MEDS: HYDROmorphone 0.5 MG/0.5 ML Syringe IVPUSH PRN ×3 (13:22→20:58)
[2022-07-20] MEDS: Piperacillin/Tazobactam 3.375 GM in Sodium Chloride 0.9% 100 ML IV SCH ×3 (13:25→23:33)
[2022-07-20] MEDS ORDERED: Warfarin 5 MG Tab PO SCH (14:00)
[2022-07-20] MEDS: Acetaminophen/HYDROcodone 325-10 MG Tab PO PRN ×2 (14:19→18:21)
[2022-07-20] MEDS ORDERED: Cyclobenzaprine 10 MG Tab PO PRN (16:22)
[2022-07-20] MEDS ORDERED: Codeine/guaiFENesin 10-100 MG/5 ML Syrup 5 ML Cup PO PRN (16:23)
[2022-07-20] MEDS: Sodium Chloride 0.9% 250 ML IV SCH (17:15)
[2022-07-20] MEDS: guaiFENesin/Dextromethorphan 100-10 MG/5 ML Soln 5 ML Cup PO PRN (18:02)
[2022-07-20] MEDS: Saccharomyces Boulardii (Probiotic) 250 MG Cap PO SCH (20:57)
[2022-07-20] MEDS: Enoxaparin 100 MG/1 ML Syringe SUBCUT SCH (20:57)
[2022-07-20] MEDS: ClonazePAM 0.5 MG Tab PO SCH (20:57)
[2022-07-20] MEDS: Enoxaparin 40 MG/0.4 ML Syringe SUBCUT SCH (20:57)
[2022-07-20] MEDS: Gabapentin 400 MG Cap PO SCH (20:58)
[2022-07-20] MEDS: traZODone 50 MG Tab PO SCH (20:58)
[2022-07-20] MEDS ORDERED: Enoxaparin 60 MG/0.6 ML Syringe SUBCUT SCH (21:00)
[2022-07-20] MEDS: Formoterol/Mometasone 200-5 MCG 8.8 GM Inhaler IH SCH (21:01)
[2022-07-21] MEDS: Sodium Chloride 0.9% 250 ML IV SCH (00:25)
[2022-07-21] MEDS: HYDROmorphone 0.5 MG/0.5 ML Syringe IVPUSH PRN ×2 (02:48→07:12)
[2022-07-21] MEDS: Albuterol/Ipratropium 3.0-0.5 MG/3 ML Neb Soln NEB PRN (05:51)
[2022-07-21] MEDS: Piperacillin/Tazobactam 3.375 GM in Sodium Chloride 0.9% 100 ML IV SCH ×3 (05:54→17:45)
[2022-07-21] MEDS: Sodium Chloride 0.9% 10 ML Syringe FLUSH PRN (07:14)
[2022-07-21] MEDS: Enoxaparin 40 MG/0.4 ML Syringe SUBCUT SCH ×2 (08:26→20:27)
[2022-07-21] MEDS: Saccharomyces Boulardii (Probiotic) 250 MG Cap PO SCH ×2 (08:27→20:27)
[2022-07-21] MEDS: Gabapentin 400 MG Cap PO SCH ×3 (08:27→20:27)
[2022-07-21] MEDS: Enoxaparin 100 MG/1 ML Syringe SUBCUT SCH ×2 (08:27→20:26)
[2022-07-21] MEDS: ClonazePAM 0.5 MG Tab PO SCH ×2 (08:27→20:28)
[2022-07-21] MEDS: Montelukast 10 MG Tab PO SCH (08:28)
[2022-07-21] MEDS: lamoTRIgine 100 MG Tab PO SCH (08:28)
[2022-07-21] MEDS: Acetaminophen/Codeine 300-30 MG Tab PO PRN (08:28)
[2022-07-21] MEDS: Formoterol/Mometasone 200-5 MCG 8.8 GM Inhaler IH SCH ×2 (08:43→20:26)
[2022-07-21] MEDS: Acetaminophen/oxyCODONE 325-5 MG Tab PO PRN ×2 (11:24→20:29)
[2022-07-21] MEDS ORDERED: Warfarin 5 MG Tab PO ONE (14:00)
[2022-07-21] MEDS: traZODone 50 MG Tab PO SCH (20:28)
[2022-07-22] MEDS: Piperacillin/Tazobactam 3.375 GM in Sodium Chloride 0.9% 100 ML IV SCH ×5 (00:13→23:14)
[2022-07-22] MEDS: Acetaminophen/oxyCODONE 325-5 MG Tab PO PRN ×2 (05:12→13:54)
[2022-07-22 06:42] LABS: ANION GAP 11.8 mEq/L (7-13)
[2022-07-22] MEDS: ClonazePAM 0.5 MG Tab PO SCH ×2 (08:20→20:10)
[2022-07-22] MEDS: Gabapentin 400 MG Cap PO SCH ×3 (08:20→20:11)
[2022-07-22] MEDS: Montelukast 10 MG Tab PO SCH (08:20)
[2022-07-22] MEDS: Enoxaparin 100 MG/1 ML Syringe SUBCUT SCH ×2 (08:20→20:10)
[2022-07-22] MEDS: Enoxaparin 40 MG/0.4 ML Syringe SUBCUT SCH ×2 (08:20→20:10)
[2022-07-22] MEDS: lamoTRIgine 100 MG Tab PO SCH (08:21)
[2022-07-22] MEDS: Saccharomyces Boulardii (Probiotic) 250 MG Cap PO SCH ×2 (08:21→20:11)
[2022-07-22] MEDS: Formoterol/Mometasone 200-5 MCG 8.8 GM Inhaler IH SCH ×2 (08:21→20:12)
[2022-07-22] MEDS ORDERED: Nystatin Topical Powder 30 GM Bottle TOP PRN (09:00)
[2022-07-22] MEDS: guaiFENesin/Dextromethorphan 100-10 MG/5 ML Soln 5 ML Cup PO PRN ×2 (09:50→23:14)
[2022-07-22] MEDS: Albuterol/Ipratropium 3.0-0.5 MG/3 ML Neb Soln NEB PRN (09:55)
[2022-07-22] MEDS ORDERED: Azithromycin 250 MG Tab PO ONE (11:00)
[2022-07-22] MEDS ORDERED: Warfarin 2.5 MG Tab PO ONE (14:00)
[2022-07-22] MEDS: HYDROmorphone 0.5 MG/0.5 ML Syringe IVPUSH PRN ×2 (15:23→21:04)
[2022-07-22] MEDS: traZODone 50 MG Tab PO SCH (20:12)
[2022-07-23] MEDS: Piperacillin/Tazobactam 3.375 GM in Sodium Chloride 0.9% 100 ML IV SCH ×3 (05:57→17:05)
[2022-07-23 06:27] LABS: ANION GAP 8.8 mEq/L (7-13)
[2022-07-23] MEDS: HYDROmorphone 0.5 MG/0.5 ML Syringe IVPUSH PRN ×3 (07:12→23:55)
[2022-07-23] MEDS: guaiFENesin/Dextromethorphan 100-10 MG/5 ML Soln 5 ML Cup PO PRN (07:12)
[2022-07-23] MEDS: Sodium Chloride 0.9% 10 ML Syringe FLUSH PRN (07:15)
[2022-07-23] MEDS: Azithromycin 250 MG Tab PO SCH (08:28)
[2022-07-23] MEDS: ClonazePAM 0.5 MG Tab PO SCH ×2 (08:28→20:17)
[2022-07-23] MEDS: Montelukast 10 MG Tab PO SCH (08:29)
[2022-07-23] MEDS: lamoTRIgine 100 MG Tab PO SCH (08:30)
[2022-07-23] MEDS: Gabapentin 400 MG Cap PO SCH ×3 (08:30→20:16)
[2022-07-23] MEDS: Enoxaparin 100 MG/1 ML Syringe SUBCUT SCH ×2 (08:31→20:16)
[2022-07-23] MEDS: Enoxaparin 40 MG/0.4 ML Syringe SUBCUT SCH ×2 (08:31→20:16)
[2022-07-23] MEDS: Formoterol/Mometasone 200-5 MCG 8.8 GM Inhaler IH SCH ×2 (08:33→20:16)
[2022-07-23] MEDS: Saccharomyces Boulardii (Probiotic) 250 MG Cap PO SCH ×2 (08:38→20:17)
[2022-07-23] MEDS ORDERED: Azithromycin 250 MG Tab PO ONE (09:00)
[2022-07-23] MEDS ORDERED: Warfarin 2.5 MG Tab PO ONE (14:00)
[2022-07-23] MEDS: Acetaminophen/oxyCODONE 325-5 MG Tab PO PRN (16:12)
[2022-07-23] MEDS: Acetaminophen/Codeine 300-30 MG Tab PO PRN (20:17)
[2022-07-23] MEDS: traZODone 50 MG Tab PO SCH (20:17)
[2022-07-24] MEDS: Piperacillin/Tazobactam 3.375 GM in Sodium Chloride 0.9% 100 ML IV SCH ×3 (00:27→11:35)
[2022-07-24] MEDS: Acetaminophen/oxyCODONE 325-5 MG Tab PO PRN (04:29)
[2022-07-24] MEDS: guaiFENesin/Dextromethorphan 100-10 MG/5 ML Soln 5 ML Cup PO PRN (04:30)
[2022-07-24 06:42] LABS: ANION GAP 10.3 mEq/L (7-13)
[2022-07-24] MEDS ORDERED: Potassium Chloride 10 MEQ Tab.ER PO ONE (07:33)
[2022-07-24] MEDS: ClonazePAM 0.5 MG Tab PO SCH (09:31)
[2022-07-24] MEDS: lamoTRIgine 100 MG Tab PO SCH (09:32)
[2022-07-24] MEDS: Montelukast 10 MG Tab PO SCH (09:32)
[2022-07-24] MEDS: Enoxaparin 40 MG/0.4 ML Syringe SUBCUT SCH (09:33)
[2022-07-24] MEDS: Azithromycin 250 MG Tab PO SCH (09:33)
[2022-07-24] MEDS: Saccharomyces Boulardii (Probiotic) 250 MG Cap PO SCH (09:33)
[2022-07-24] MEDS: Enoxaparin 100 MG/1 ML Syringe SUBCUT SCH (09:33)
[2022-07-24] MEDS: Gabapentin 400 MG Cap PO SCH (09:34)
[2022-07-24] MEDS: Formoterol/Mometasone 200-5 MCG 8.8 GM Inhaler IH SCH (09:35)
[2022-07-24 11:50] VITALS: BP 125/72; PULSE 87
== END 2022-07-24 12:15 | disposition home or self-care (01) | DRG 871 ==
LOC: DL.ED 06:11 → DL.MS 09:52
PROVIDERS: ADMIT Internal Medicine; ATTEND Internal Medicine
DX: A41.9 Sepsis, unspecified organism (principal); S22.42XA Multiple fractures of ribs, left side, initial encounter for closed fracture; G92.8 Other toxic encephalopathy; I26.99 Other pulmonary embolism without acute cor pulmonale; J18.9 Pneumonia, unspecified organism; Z68.42 Body mass index [BMI] 45.0-49.9, adult; K51.90 Ulcerative colitis, unspecified, without complications; B37.89 Other sites of candidiasis; E78.5 Hyperlipidemia, unspecified; I10 Essential (primary) hypertension; F41.9 Anxiety disorder, unspecified; I25.10 Atherosclerotic heart disease of native coronary artery without angina pectoris; F31.9 Bipolar disorder, unspecified; J45.909 Unspecified asthma, uncomplicated; K21.9 Gastro-esophageal reflux disease without esophagitis; W18.30XA Fall on same level, unspecified, initial encounter; R73.01 Impaired fasting glucose; E66.9 Obesity, unspecified; G62.9 Polyneuropathy, unspecified; M19.90 Unspecified osteoarthritis, unspecified site; G89.29 Other chronic pain; G47.00 Insomnia, unspecified; M54.9 Dorsalgia, unspecified; E03.9 Hypothyroidism, unspecified; L40.9 Psoriasis, unspecified; D69.6 Thrombocytopenia, unspecified; Z20.822 Contact with and (suspected) exposure to COVID-19; Z79.899 Other long term (current) drug therapy; I25.2 Old myocardial infarction; Z98.890 Other specified postprocedural states; Z90.710 Acquired absence of both cervix and uterus; Z56.0 Unemployment, unspecified
CPT/HCPCS: 36415; 71045; 71275; 80048; 80053; 80202; 83605; 83735; 84145; 84484; 85025; 85610; 86140; 87040; 87070; 87205; 93005; 93010; 93970; 94640; 94762; 96365; 96366; 96372; 97161-GP; 97165-GO; 99223; 99232; 99233; 99238; 99285-25; 99291; A9270-GY; J1170; J1650; J2543; J3370; J3490; J7030; J7050; J7620-GY; Q9967; U0002

== ENCOUNTER 2022-08-05 12:02 | Emergency (ER) | payer MEDICARE, MEDICAID ==
[2022-08-05] MEDS ORDERED: Acetaminophen/oxyCODONE 325-5 MG Tab PO ONE (12:03)
[2022-08-05 12:36] VITALS: BP 139/71; PULSE 103
[2022-08-05] MEDS: Acetaminophen/oxyCODONE 325-5 MG Tab ONE (14:24)
[2022-08-05] MEDS: Acetaminophen/oxyCODONE 325-5 MG Tab PO ONE (14:33)
[2022-08-05] MEDS: Warfarin 5 MG Tab PO ONE (14:34)
== END 2022-08-05 14:38 | disposition home or self-care (01) ==
LOC: DL.ED 12:02
DX: S22.42XD Multiple fractures of ribs, left side, subsequent encounter for fracture with routine healing (principal); R79.1 Abnormal coagulation profile; R60.0 Localized edema; I10 Essential (primary) hypertension; I25.2 Old myocardial infarction; J45.909 Unspecified asthma, uncomplicated; Z88.0 Allergy status to penicillin; Z91.09 Other allergy status, other than to drugs and biological substances; Z88.8 Allergy status to other drugs, medicaments and biological substances; Z91.048 Other nonmedicinal substance allergy status; Z91.010 Allergy to peanuts; Z86.718 Personal history of other venous thrombosis and embolism; Z86.711 Personal history of pulmonary embolism; Z79.01 Long term (current) use of anticoagulants; Z79.899 Other long term (current) drug therapy; I25.10 Atherosclerotic heart disease of native coronary artery without angina pectoris; E66.9 Obesity, unspecified; Z68.42 Body mass index [BMI] 45.0-49.9, adult
CPT/HCPCS: 36415; 71046; 71100-LT; 83880; 85610; 99283; 99284; A9270-GY

== ENCOUNTER 2022-08-29 02:23 | Inpatient (IN) | payer MEDICARE, MEDICAID ==
[~2022-08-29 02:23] MED LIST changes: -Dextrose 5%-0.45% NaCl 1,000 ML IV SCH
[2022-08-29 02:52] LABS: BASOPHILS PERCENT AUTO 0.4 % (0.0-1.0); EOSINOPHILS PERCENT AUTO 2.3 % (1.0-3.0); HEMATOCRIT 36.9 % (37.0-47.0); LYMPHOCYTES PERCENT AUTO 16.3 % (20.5-50.1); MEAN CORPUSCULAR HEMOGLOBIN 31.6 pg (27.0-34.0); MEAN CORPUSCULAR HGB CONC 32.5 g/dL (33.0-35.0); MEAN CORPUSCULAR VOLUME 97.1 fL (80-100); MONOCYTES PERCENT AUTO 8.1 % (2-8); NEUTROPHILS PERCENT AUTO 72.9 % (42.2-75.2); PLATELET COUNT,PLT 445 10^3/uL (150-450); WHITE BLOOD CELL COUNT,WBC 13.8 10^3/uL (5.0-10.0)
[2022-08-29 03:25] LABS: ALANINE AMINOTRANSFERASE,ALT 21 U/L (14-59); ALBUMIN 3.3 g/dL (3.4-5.0); ALKALINE PHOSPHATASE 71 U/L (46-116); ASPARTATE AMNIOTRANSFERASE,AST 10 U/L (15-37); BILIRUBIN TOTAL 0.6 mg/dL (0.2-1.0); BLOOD UREA NITROGEN,BUN 13 mg/dL (7-18); C-REACTIVE PROTEIN 9.5 mg/dL (0.0-0.9); CALCIUM 8.8 mg/dL (8.5-10.1); CARBON DIOXIDE,CO2 31 mmol/L (21-32); CHLORIDE,CL 99 mmol/L (98-107); EST CRCL DRUG DOSING (CG) 53.16 mL/min; GLUCOSE RANDOM 134 mg/dL (70-99); MAGNESIUM 1.9 mg/dL (1.8-2.4); SODIUM,NA 136 mmol/L (136-145)
[2022-08-29 03:26] LABS: LACTIC ACID 0.9 mmol/L (0.4-2.0)
[2022-08-29 03:39] LABS: A/G RATIO 0.89; ESTIMATED GFR 64 mL/min (>=60); ETHANOL BLOOD MEDICAL < 3 mg/dL (0)
[2022-08-29 03:49] LABS: INR 1.2 (0.9-1.2); PROTHROMBIN TIME 12.5 SEC (9.0-12.0); PTT,PARTIAL THROMBOPLSTIN TIME 24.5 SEC (22.0-34.0)
[2022-08-29 04:20] LABS: B-TYPE NATRIURETIC PEPTIDE,BNP 21 pg/ml (0-100)
[2022-08-29] MEDS: Iopamidol 755 Mg/ML 100 ML Bottle IVPUSH ONE ×2 (05:37→08:27)
[2022-08-29 07:52] LABS: APPEARANCE,URINE CLEAR (CLEAR); BILIRUBIN,URINE NEGATIVE (NEGATIVE); COLOR,URINE YELLOW (YELLOW); GLUCOSE,URINE NEGATIVE (NEGATIVE); KETONES,URINE NEGATIVE (NEGATIVE); LEUKOCYTE ESTERASE,URINE SMALL (NEGATIVE); NITRITE,URINE NEGATIVE (NEGATIVE); OCCULT BLOOD,URINE TRACE-INTACT (NEGATIVE); PROTEIN,URINE NEGATIVE (NEGATIVE); UROBILINOGEN,URINE 0.2 mg/dL (0.2-1.0)
[2022-08-29 08:03] LABS: AMPHETAMINES,URINE NEGATIVE (NEGATIVE); BARBITURATES,URINE NEGATIVE (NEGATIVE); BENZODIAZEPINE,URINE NEGATIVE (NEGATIVE); MDMA (ECSTASY), URINE NEGATIVE (NEGATIVE); METHADONE,URINE NEGATIVE (NEGATIVE); METHAMPHETAMINES,URINE NEGATIVE (NEGATIVE); OPIATES,URINE NEGATIVE (NEGATIVE); OXYCODONE,URINE POSITIVE (NEGATIVE); PHENCYCLIDINE,URINE POSITIVE (NEGATIVE); TCA,URINE NEGATIVE (NEGATIVE)
[2022-08-29 08:09] LABS: EPITHELIAL CELLS,URINE FEW /HPF (NOT SEEN); RBC,URINE 0-5 /HPF (0-5)
[2022-08-29 08:10] LABS: BACTERIA,URINE OCCASIONAL /HPF (0-FEW/HPF)
[2022-08-29] MEDS ORDERED: Bisacodyl 5 MG Tab PO PRN (08:19)
[2022-08-29] MEDS ORDERED: Ondansetron 4 MG/2 ML SDV IVPUSH PRN (08:19)
[2022-08-29] MEDS ORDERED: Acetaminophen 325 MG Tab PO PRN (08:19)
[2022-08-29] MEDS ORDERED: Polyethylene Glycol 3350 Powder 17 GM Packet PO PRN (08:19)
[2022-08-29] MEDS ORDERED: Docusate Sodium 100 MG Cap PO PRN (08:19)
[2022-08-29] MEDS: Acetaminophen/HYDROcodone 325-5 MG Tab PO PRN ×2 (08:43→19:35)
[2022-08-29] MEDS: Levofloxacin 500 MG Tab PO SCH (08:43)
[2022-08-29] MEDS: Apixaban 5 MG Tab PO SCH ×2 (08:43→20:18)
[2022-08-29] MEDS: Oseltamivir 75 MG Cap PO SCH ×2 (08:44→20:19)
[2022-08-29] MEDS ORDERED: Albuterol 6.7 GM Inhaler INH PRN (12:58)
[2022-08-29] MEDS: Gabapentin 400 MG Cap PO SCH ×2 (14:44→20:18)
[2022-08-29] MEDS: Nystatin Crm 15 GM Tube TOP SCH (20:19)
[2022-08-29] MEDS ORDERED: Zolpidem 5 MG Tab PO PRN (21:00)
[2022-08-29] MEDS: Formoterol/Mometasone 200-5 MCG 8.8 GM Inhaler IH SCH (22:00)
[2022-08-30] MEDS: Acetaminophen/HYDROcodone 325-5 MG Tab PO PRN (04:31)
[2022-08-30 06:25] LABS: BASOPHILS PERCENT AUTO 0.3 % (0.0-1.0); EOSINOPHILS PERCENT AUTO 5.4 % (1.0-3.0); HEMATOCRIT 34.9 % (37.0-47.0); HEMOGLOBIN 11.2 g/dL (12.0-16.0); LYMPHOCYTES PERCENT AUTO 14.3 % (20.5-50.1); MEAN CORPUSCULAR HEMOGLOBIN 31.3 pg (27.0-34.0); MEAN CORPUSCULAR HGB CONC 32.1 g/dL (33.0-35.0); MEAN CORPUSCULAR VOLUME 97.5 fL (80-100); MONOCYTES PERCENT AUTO 9.2 % (2-8); NEUTROPHILS PERCENT AUTO 70.8 % (42.2-75.2); PLATELET COUNT,PLT 437 10^3/uL (150-450); RED BLOOD CELL COUNT 3.58 10^6/uL (4.2-5.4); WHITE BLOOD CELL COUNT,WBC 10.3 10^3/uL (5.0-10.0)
[2022-08-30 06:41] LABS: ANION GAP 10.8 mEq/L (7-13); CALCIUM 8.6 mg/dL (8.5-10.1); CREATININE 0.72 mg/dL (0.55-1.02); EST CRCL DRUG DOSING (CG) 73.83 mL/min; POTASSIUM,K 3.8 mmol/L (3.5-5.1)
[2022-08-30] MEDS: Formoterol/Mometasone 200-5 MCG 8.8 GM Inhaler IH SCH (08:30)
[2022-08-30] MEDS: Nystatin Crm 15 GM Tube TOP SCH (08:31)
[2022-08-30] MEDS: Levofloxacin 500 MG Tab PO SCH (08:32)
[2022-08-30] MEDS: Oseltamivir 75 MG Cap PO SCH (08:32)
[2022-08-30] MEDS: Apixaban 5 MG Tab PO SCH (08:33)
[2022-08-30] MEDS: Gabapentin 400 MG Cap PO SCH (08:33)
[2022-08-30 08:38] VITALS: BP 122/61
[2022-08-30] MEDS ORDERED: Losartan 50 MG Tab PO SCH (09:00)
[2022-08-30] MEDS ORDERED: Montelukast 10 MG Tab PO SCH (09:00)
[2022-08-30] MEDS ORDERED: lamoTRIgine 100 MG Tab PO SCH (09:00)
[2022-08-30 09:02] VITALS: PULSE 107
[2022-08-30] MEDS ORDERED: VANCOmycin 1.5 GM/300 ML 1.5 GM in Premix Bag 1 BAG IV SCH (18:00)
== END 2022-08-30 10:35 | disposition home or self-care (01) | DRG 187 ==
LOC: DL.ED 02:23 → UNDOADMIN 06:22 → DL.MS 06:22
PROVIDERS: ADMIT Internal Medicine; ATTEND Internal Medicine
DX: J90 Pleural effusion, not elsewhere classified (principal); J98.11 Atelectasis; R65.10 Systemic inflammatory response syndrome (SIRS) of non-infectious origin without acute organ dysfunction; R09.02 Hypoxemia; I25.10 Atherosclerotic heart disease of native coronary artery without angina pectoris; Z20.822 Contact with and (suspected) exposure to COVID-19; E66.01 Morbid (severe) obesity due to excess calories; H54.7 Unspecified visual loss; I10 Essential (primary) hypertension; J45.909 Unspecified asthma, uncomplicated; Z56.0 Unemployment, unspecified; I25.2 Old myocardial infarction; Z88.0 Allergy status to penicillin; Z88.8 Allergy status to other drugs, medicaments and biological substances; E03.9 Hypothyroidism, unspecified; E78.00 Pure hypercholesterolemia, unspecified; K21.9 Gastro-esophageal reflux disease without esophagitis; F31.9 Bipolar disorder, unspecified; Z79.01 Long term (current) use of anticoagulants; Z79.899 Other long term (current) drug therapy; Z86.718 Personal history of other venous thrombosis and embolism
CPT/HCPCS: 36415; 71045; 71275; 80048; 80053; 80202; 80305-QW; 80307; 81001; 83605; 83735; 83880; 84145; 84484; 85025; 85379; 85610; 85730; 86140; 87040; 87086; 87088; 87186; 87804; 93005; 93010; 94010; 94762; 96365; 99222; 99238; 99285; 99285-25; A9270-GY; J3370; J3490; J7040; J7050; Q9967; U0002

== ENCOUNTER → 2023-05-25 | Day surgery (SDC) | payer MEDICARE, MEDICAID ==
[~2023-05-25] MED LIST changes: +Dextrose 5%-0.45% NaCl 1,000 ML IV SCH; +Midazolam 1 MG/ML 2 ML SDV IV ONE; +Midazolam 1 MG/ML 2 ML SDV ONE; -Sodium Chloride 0.9% 10 ML Syringe FLUSH PRN; +fentaNYL 100 MCG/2 ML SDV IV ONE; +fentaNYL 100 MCG/2 ML SDV ONE
[2023-05-25 12:40] VITALS: BP 122/60; PULSE 77
== END ==
LOC: DL.ENDO 06:23
PROVIDERS: ATTEND Internal Medicine Gastroenterology
DX: K51.90 Ulcerative colitis, unspecified, without complications (principal); K52.9 Noninfective gastroenteritis and colitis, unspecified; I10 Essential (primary) hypertension; F32.A Depression, unspecified; F41.9 Anxiety disorder, unspecified; E78.5 Hyperlipidemia, unspecified; I25.10 Atherosclerotic heart disease of native coronary artery without angina pectoris; E03.9 Hypothyroidism, unspecified
CPT/HCPCS: 88305; J2250; J3010; J7042

== ENCOUNTER 2023-06-26 11:51 | Emergency (ER) | payer MEDICARE, MEDICAID ==
[2023-06-26] MEDS: Morphine 4 MG/ML Syringe IM ONE ×2 (12:27→12:31)
[2023-06-26] MEDS: Ondansetron 4 MG Tab.DIS PO ONE (12:31)
[2023-06-26 15:20] VITALS: BP 136/99; PULSE 105
== END 2023-06-26 15:02 | disposition home or self-care (01) ==
LOC: DL.ED 11:51
DX: S52.572A Other intraarticular fracture of lower end of left radius, initial encounter for closed fracture (principal); I10 Essential (primary) hypertension; I25.2 Old myocardial infarction; I25.10 Atherosclerotic heart disease of native coronary artery without angina pectoris; J45.909 Unspecified asthma, uncomplicated; E78.00 Pure hypercholesterolemia, unspecified; E66.9 Obesity, unspecified; E03.9 Hypothyroidism, unspecified; Z88.0 Allergy status to penicillin; Z91.018 Allergy to other foods; Z91.048 Other nonmedicinal substance allergy status; Z88.8 Allergy status to other drugs, medicaments and biological substances; Z79.899 Other long term (current) drug therapy; Z68.41 Body mass index [BMI] 40.0-44.9, adult; W01.0XXA Fall on same level from slipping, tripping and stumbling without subsequent striking against object, initial encounter
CPT/HCPCS: 29125; 73110; 96372; 99283; A9270; J2270

== ENCOUNTER 2024-05-27 20:33 | Emergency (ER) | payer MEDICARE, MEDICAID ==
[2024-05-27 21:18] VITALS: BP 129/78; PULSE 102
[2024-05-27] MEDS: Take Home: Cephalexin 500 MG Cap, 6 Cap Pack PO ONE (21:24)
== END 2024-05-27 21:29 | disposition home or self-care (01) ==
LOC: DL.ED 20:33
DX: L03.317 Cellulitis of buttock (principal); I10 Essential (primary) hypertension; E78.00 Pure hypercholesterolemia, unspecified; I25.10 Atherosclerotic heart disease of native coronary artery without angina pectoris; J45.909 Unspecified asthma, uncomplicated; K21.9 Gastro-esophageal reflux disease without esophagitis; E66.9 Obesity, unspecified; Z90.710 Acquired absence of both cervix and uterus; Z79.899 Other long term (current) drug therapy; Z91.018 Allergy to other foods; Z91.048 Other nonmedicinal substance allergy status; Z88.8 Allergy status to other drugs, medicaments and biological substances; Z88.0 Allergy status to penicillin; X31.XXXA Exposure to excessive natural cold, initial encounter
CPT/HCPCS: 99283; A9270